=== PATIENT | male | born 1940 | race Caucasian/White ===

== ENCOUNTER 2020-06-13 18:05 | Inpatient (IN) ==
[2020-06-13] MEDS ORDERED: Albuterol HFA INHALER 8 gm MDI INH ONE (18:21)
[2020-06-13] MEDS ORDERED: Albuterol/Ipratropium NEB.SOL (2.5/0.5 MG) 3 ML NEB.SOLN INH PRN (18:45)
[2020-06-13] MEDS ORDERED: Remdesivir 100 mg Vial 200 MG in NS 0.9% 250 ml 210 ML IV ONE (18:46)
[2020-06-13 20:07] LABS: ABS Lymphocytes 0.7 10^3/ul (1.0-4.8); ABS Monocytes 0.1 10^3/ul (0-0.8); ABS Neutrophils 8.1 10^3/ul (1.5-7.7); Hematocrit 38 % (42-52); Hemoglobin 12.8 g/dL (14.0-18.0); Lymphocyte % 7.9 %; Mean Corpuscular HGB Conc 33 g/dL (31-36); Mean Corpuscular Hemoglobin 29 pg (27-31); Mean Corpuscular Volume 88 fL (80-94); Mean Platelet Volume 8.4 fL (7.4-10.4); Platelet Count 165 10^3/uL (150-450); Red Blood Count 4.34 10^6 /uL (4.18-5.48); Red Cell Distribution Width 19 % (10-15)
[2020-06-13] MEDS ORDERED: Furosemide 40 mg/4 ml IV VIAL IV ONE (20:28)
[2020-06-13 20:29] LABS: ALT 18 U/L (7-52); AST 49 U/L (13-39); Albumin 3.3 g/dL (3.2-5.2); Alkaline Phosphatase 55 U/L (34-104); Anion Gap 12 mmol/L (2-11); BUN/Creatinine Ratio 17.4 (8-20); Blood Urea Nitrogen 29 mg/dL (6-24); CO2 Carbon Dioxide 20 mmol/L (22-32); Calcium 7.7 mg/dL (8.6-10.3); Chloride 103 mmol/L (101-111); EGFR African American 48.4 (>60); Globulin 3.3 g/dL (2-4); Glucose 149 mg/dL (70-100); Potassium 4.3 mmol/L (3.5-5.0); Sodium 135 mmol/L (135-145); Total Protein 6.6 g/dL (6.4-8.9)
[2020-06-13] MEDS ORDERED: Nitroglycerin 0.4 mg/hr PATCH (10 mg) TRANSDERM ONE (20:29)
[2020-06-13] MEDS: methylPREDNISolone SOD 40 mg/ml 1 ml VIAL IV SCH (20:33)
[2020-06-13] MEDS: Enoxaparin 40 MG/0.4 ML SYR SUBCUT SCH (20:34)
[2020-06-13] MEDS ORDERED: Metoprolol Tartrate 5 mg VIAL 5 ml VIAL (1 mg/ml) IV ONE (22:17)
[2020-06-13 23:58] LABS: Troponin I 0.49 ng/mL (<0.03)
[2020-06-14] MEDS: methylPREDNISolone SOD 40 mg/ml 1 ml VIAL IV SCH ×3 (04:22→19:35)
[2020-06-14 04:33] LABS: ABS Lymphocytes 0.7 10^3/ul (1.0-4.8); ABS Monocytes 0.1 10^3/ul (0-0.8); ABS Neutrophils 6.1 10^3/ul (1.5-7.7); Hematocrit 34 % (42-52); Hemoglobin 11.8 g/dL (14.0-18.0); Lymphocyte % 9.6 %; Mean Corpuscular HGB Conc 35 g/dL (31-36); Mean Corpuscular Hemoglobin 30 pg (27-31); Mean Corpuscular Volume 86 fL (80-94); Mean Platelet Volume 8.3 fL (7.4-10.4); Nucleated Red Blood Cells % 0.1; Platelet Count 160 10^3/uL (150-450); Red Blood Count 3.97 10^6 /uL (4.18-5.48); Red Cell Distribution Width 19 % (10-15); White Blood Count 6.9 10^3/uL (3.5-10.8)
[2020-06-14 04:40] LABS: INR 1.36 (0.82-1.09)
[2020-06-14 04:50] LABS: BUN/Creatinine Ratio 19.7 (8-20); Calcium 7.6 mg/dL (8.6-10.3); EGFR African American 46.5 (>60); EGFR Non-African American 38.4 (>60); Magnesium 1.7 mg/dL (1.9-2.7)
[2020-06-14] MEDS: Tiotropium Brom/Olodaterol MDI INH SCH (07:49)
[2020-06-14] MEDS: Enoxaparin 40 MG/0.4 ML SYR SUBCUT SCH ×2 (08:03→19:37)
[2020-06-14] MEDS ORDERED: Furosemide 40 mg/4 ml IV VIAL IV SLOW PU ONE ×2 (08:19→18:58)
[2020-06-14] MEDS ORDERED: Dexamethasone IV 4 MG/ML VIAL 1 ml VIAL IV SLOW PU SCH (09:00)
[2020-06-14] MEDS ORDERED: Nitro Patch/OINT Remove PATCH PATCH OFF ONE (09:00)
[2020-06-14] MEDS ORDERED: Azithromycin 500 mg/250 ml NS 500 MG/250 ML BAG IVPB ONE (09:43)
[2020-06-14] MEDS: cefTRIAXone 1 gm/50 mL NS BAG 1 GM/50 ML BAG IVPB SCH (11:08)
[2020-06-14] MEDS ORDERED: Senna TAB 8.6 mg TAB PO PRN (14:34)
[2020-06-14] MEDS: Polyethylene Glycol 3350 17 GM PACKET PO SCH (15:27)
[2020-06-14 17:17] LABS: BUN/Creatinine Ratio 25.1 (8-20); Calcium 7.9 mg/dL (8.6-10.3); EGFR African American 48.4 (>60); Potassium 3.8 mmol/L (3.5-5.0)
[2020-06-14] MEDS ORDERED: Tocilizumab 200 MG/10 ML 10 ml VIAL IVPB ONE (19:13)
[2020-06-14] MEDS ORDERED: Furosemide 40 mg/4 ml IV VIAL ONE (19:15)
[2020-06-14] MEDS: Mometasone 220 MCG MDI INH SCH (19:28)
[2020-06-14] MEDS: KCL 10 MEQ/50 ML IVPREMIX 10 MEQ/50 ML BAG IV SCH ×2 (19:56→22:02)
[2020-06-14] MEDS ORDERED: Tocilizumab 800 MG in NS 0.9% 100 ml BAG 60 ML IVPB ONE (20:00)
[2020-06-14] MEDS: Remdesivir 100 mg Vial 100 MG in NS 0.9% 250 ml 230 ML IV SCH (21:58)
[2020-06-15] MEDS: methylPREDNISolone SOD 40 mg/ml 1 ml VIAL IV SCH ×3 (04:08→20:11)
[2020-06-15 04:18] LABS: ABS Lymphocytes 0.7 10^3/ul (1.0-4.8); ABS Monocytes 0.2 10^3/ul (0-0.8); ABS Neutrophils 5.1 10^3/ul (1.5-7.7); Hematocrit 34 % (42-52); Hemoglobin 11.5 g/dL (14.0-18.0); Lymphocyte % 12.4 %; Mean Corpuscular HGB Conc 34 g/dL (31-36); Mean Corpuscular Hemoglobin 29 pg (27-31); Mean Corpuscular Volume 86 fL (80-94); Mean Platelet Volume 8.3 fL (7.4-10.4); Nucleated Red Blood Cells % 0.2; Platelet Count 184 10^3/uL (150-450); Red Blood Count 3.92 10^6 /uL (4.18-5.48); Red Cell Distribution Width 20 % (10-15)
[2020-06-15 04:23] LABS: INR 1.35 (0.82-1.09)
[2020-06-15 04:32] LABS: BUN/Creatinine Ratio 28.6 (8-20); Calcium 7.7 mg/dL (8.6-10.3); EGFR African American 48.1 (>60); EGFR Non-African American 39.7 (>60); Magnesium 1.9 mg/dL (1.9-2.7); Potassium 3.8 mmol/L (3.5-5.0)
[2020-06-15] MEDS: Tiotropium Brom/Olodaterol MDI INH SCH (07:01)
[2020-06-15] MEDS ORDERED: Potassium Chlor 20 meq TAB.ER PO ONE (07:20)
[2020-06-15] MEDS ORDERED: Magnesium Sulfate IV 1GM/100ML 1 GM/100 ML BAG IV ONE (07:20)
[2020-06-15] MEDS ORDERED: Furosemide 40 mg/4 ml IV VIAL IV SLOW PU ONE ×2 (07:30→18:06)
[2020-06-15] MEDS: Enoxaparin 40 MG/0.4 ML SYR SUBCUT SCH ×2 (08:07→20:11)
[2020-06-15] MEDS: Polyethylene Glycol 3350 17 GM PACKET PO SCH (08:15)
[2020-06-15] MEDS: cefTRIAXone 1 gm/50 mL NS BAG 1 GM/50 ML BAG IVPB SCH (09:31)
[2020-06-15] MEDS ORDERED: methylPREDNISolone 125 mg 2 ML VIAL IV ONE (13:55)
[2020-06-15] MEDS: Albuterol/Ipratropium NEB.SOL (2.5/0.5 MG) 3 ML NEB.SOLN INH SCH ×3 (14:06→23:03)
[2020-06-15] MEDS ORDERED: Albuterol/Ipratropium NEB.SOL (2.5/0.5 MG) 3 ML NEB.SOLN ONE (16:41)
[2020-06-15] MEDS: Senna TAB 8.6 mg TAB PO SCH ×2 (16:42→20:11)
[2020-06-15 17:03] LABS: Anion Gap 12 mmol/L (2-11); BUN/Creatinine Ratio 32.7 (8-20); Blood Urea Nitrogen 53 mg/dL (6-24); CO2 Carbon Dioxide 22 mmol/L (22-32); Calcium 7.8 mg/dL (8.6-10.3); Chloride 105 mmol/L (101-111); EGFR African American 50.1 (>60); EGFR Non-African American 41.4 (>60); Glucose 183 mg/dL (70-100); Potassium 3.6 mmol/L (3.5-5.0); Sodium 139 mmol/L (135-145)
[2020-06-15] MEDS ORDERED: Metoprolol Tartrate 5 mg VIAL 5 ml VIAL (1 mg/ml) ONE (17:04)
[2020-06-15] MEDS ORDERED: Metoprolol Tartrate 5 mg VIAL 5 ml VIAL (1 mg/ml) IV ONE (17:06)
[2020-06-15] MEDS ORDERED: Magnesium Sulfate 2 gm BAG 2 GM/50 ML BAG IVPB ONE (17:08)
[2020-06-15 17:37] LABS: Magnesium 2.3 mg/dL (1.9-2.7)
[2020-06-15 17:45] LABS: Troponin I 0.07 ng/mL (<0.03)
[2020-06-15] MEDS: Remdesivir 100 mg Vial 100 MG in NS 0.9% 250 ml 230 ML IV SCH (21:15)
[2020-06-15] MEDS: Mometasone 220 MCG MDI INH SCH (23:04)
[2020-06-16] MEDS: Albuterol/Ipratropium NEB.SOL (2.5/0.5 MG) 3 ML NEB.SOLN INH SCH ×2 (04:32→07:01)
[2020-06-16] MEDS: methylPREDNISolone SOD 40 mg/ml 1 ml VIAL IV SCH ×3 (04:35→20:07)
[2020-06-16 04:43] LABS: ABS Lymphocytes 0.4 10^3/ul (1.0-4.8); ABS Monocytes 0.2 10^3/ul (0-0.8); ABS Neutrophils 6.8 10^3/ul (1.5-7.7); Hematocrit 34 % (42-52); Hemoglobin 11.6 g/dL (14.0-18.0); Lymphocyte % 5.9 %; Mean Corpuscular HGB Conc 34 g/dL (31-36); Mean Corpuscular Hemoglobin 29 pg (27-31); Mean Corpuscular Volume 87 fL (80-94); Mean Platelet Volume 8.5 fL (7.4-10.4); Nucleated Red Blood Cells % 0.1; Platelet Count 236 10^3/uL (150-450); Red Blood Count 3.95 10^6 /uL (4.18-5.48); Red Cell Distribution Width 19 % (10-15); White Blood Count 7.5 10^3/uL (3.5-10.8)
[2020-06-16 04:50] LABS: INR 1.26 (0.82-1.09)
[2020-06-16 05:00] LABS: BUN/Creatinine Ratio 32.9 (8-20); Calcium 7.9 mg/dL (8.6-10.3); EGFR African American 53.9 (>60); EGFR Non-African American 44.6 (>60); Magnesium 2.8 mg/dL (1.9-2.7); Potassium 3.5 mmol/L (3.5-5.0)
[2020-06-16] MEDS ORDERED: Potassium Chlor 20 meq TAB.ER PO ONE ×2 (07:02→16:23)
[2020-06-16] MEDS: Tiotropium Brom/Olodaterol MDI INH SCH (07:02)
[2020-06-16] MEDS: Enoxaparin 40 MG/0.4 ML SYR SUBCUT SCH ×2 (08:11→20:07)
[2020-06-16] MEDS: Polyethylene Glycol 3350 17 GM PACKET PO SCH (08:28)
[2020-06-16] MEDS: cefTRIAXone 1 gm/50 mL NS BAG 1 GM/50 ML BAG IVPB SCH (09:56)
[2020-06-16] MEDS ORDERED: Furosemide 100 mg/10 ml IV 100 MG in NS 0.9% 100 ml BAG 90 ML IV SCH (10:00)
[2020-06-16] MEDS ORDERED: Albuterol/Ipratropium NEB.SOL (2.5/0.5 MG) 3 ML NEB.SOLN INH SCH (11:00)
[2020-06-16 16:17] LABS: Albumin 3.3 g/dL (3.2-5.2); BUN/Creatinine Ratio 33.3 (8-20); Calcium 7.9 mg/dL (8.6-10.3); EGFR African American 53.5 (>60); EGFR Non-African American 44.2 (>60); Globulin 3.3 g/dL (2-4); Magnesium 2.5 mg/dL (1.9-2.7); Phosphorus 3.2 mg/dL (2.5-5.0); Potassium 3.8 mmol/L (3.5-5.0); Total Bilirubin 0.9 mg/dL (0.2-1.0); Total Protein 6.6 g/dL (6.4-8.9)
[2020-06-16] MEDS: Senna TAB 8.6 mg TAB PO SCH (20:08)
[2020-06-16] MEDS: Remdesivir 100 mg Vial 100 MG in NS 0.9% 250 ml 230 ML IV SCH (21:21)
[2020-06-17] MEDS: methylPREDNISolone SOD 40 mg/ml 1 ml VIAL IV SCH ×3 (03:56→19:20)
[2020-06-17 04:06] LABS: ABS Lymphocytes 0.4 10^3/ul (1.0-4.8); ABS Monocytes 0.4 10^3/ul (0-0.8); ABS Neutrophils 8.1 10^3/ul (1.5-7.7); Hematocrit 33 % (42-52); Hemoglobin 11.4 g/dL (14.0-18.0); Lymphocyte % 4.5 %; Mean Corpuscular HGB Conc 35 g/dL (31-36); Mean Corpuscular Hemoglobin 30 pg (27-31); Mean Corpuscular Volume 87 fL (80-94); Mean Platelet Volume 8.8 fL (7.4-10.4); Nucleated Red Blood Cells % 0.1; Platelet Count 267 10^3/uL (150-450); Red Blood Count 3.78 10^6 /uL (4.18-5.48); Red Cell Distribution Width 19 % (10-15); White Blood Count 8.9 10^3/uL (3.5-10.8)
[2020-06-17 04:22] LABS: BUN/Creatinine Ratio 36.1 (8-20); EGFR African American 56.1 (>60); EGFR Non-African American 46.3 (>60); Magnesium 2.6 mg/dL (1.9-2.7); Potassium 4.2 mmol/L (3.5-5.0)
[2020-06-17] MEDS: Enoxaparin 40 MG/0.4 ML SYR SUBCUT SCH ×2 (07:41→19:20)
[2020-06-17] MEDS: Polyethylene Glycol 3350 17 GM PACKET PO SCH (07:41)
[2020-06-17] MEDS: Tiotropium Brom/Olodaterol MDI INH SCH (07:52)
[2020-06-17] MEDS: cefTRIAXone 1 gm/50 mL NS BAG 1 GM/50 ML BAG IVPB SCH (09:06)
[2020-06-17] MEDS ORDERED: Bumetanide IV 0.25 MG/ML 4 ml VIAL (1 mg) SLOW PUSH ONE ×2 (09:30→17:27)
[2020-06-17 17:06] LABS: Urine Appearance Cloudy; Urine Bilirubin Negative (Negative); Urine Blood 3+ (Negative); Urine Color Yellow; Urine Glucose Negative (Negative); Urine Ketones Negative (Negative); Urine Nitrite Negative (Negative); Urine Protein 1+(30 mg/dL) (Negative); Urine Specific Gravity 1.015 (1.002-1.030); Urine Urobilinogen Negative (Negative)
[2020-06-17 17:14] LABS: Urine Bacteria Absent (Absent); Urine Red Blood Cell 3+(>10/hpf) (Absent); Urine Squamous Epithelial Cell Present (Absent); Urine White Blood Cell Absent (Absent)
[2020-06-17] MEDS: Senna TAB 8.6 mg TAB PO SCH (19:21)
[2020-06-17] MEDS: Remdesivir 100 mg Vial 100 MG in NS 0.9% 250 ml 230 ML IV SCH (21:31)
[2020-06-18] MEDS ORDERED: Morphine 2 MG/ML SYRINGE IV ONE (03:50)
[2020-06-18] MEDS: methylPREDNISolone SOD 40 mg/ml 1 ml VIAL IV SCH ×2 (04:00→15:42)
[2020-06-18 04:29] LABS: INR 1.33 (0.82-1.09)
[2020-06-18 04:36] LABS: Hematocrit 38 % (42-52); Hemoglobin 12.6 g/dL (14.0-18.0); Mean Corpuscular HGB Conc 33 g/dL (31-36); Mean Corpuscular Hemoglobin 29 pg (27-31); Mean Corpuscular Volume 88 fL (80-94); Mean Platelet Volume 7.9 fL (7.4-10.4); Platelet Count 300 10^3/uL (150-450); Red Blood Count 4.33 10^6 /uL (4.18-5.48); Red Cell Distribution Width 20 % (10-15); White Blood Count 12.5 10^3/uL (3.5-10.8)
[2020-06-18 04:57] LABS: Calcium 7.5 mg/dL (8.6-10.3); Magnesium 2.3 mg/dL (1.9-2.7); Potassium 4.8 mmol/L (3.5-5.0)
[2020-06-18 05:05] LABS: BUN/Creatinine Ratio 36.4 (8-20); EGFR African American 59.3 (>60)
[2020-06-18 06:09] LABS: ABS Lymphocytes 0.8 10^3/ul (1.0-4.8); ABS Monocytes 0.5 10^3/ul (0-0.8); ABS Neutrophils 11.3 10^3/ul (1.5-7.7); Lymphocyte % 6.2 %
[2020-06-18] MEDS ORDERED: Polyethylene Glycol 3350 17 GM PACKET PO PRN (10:08)
[2020-06-18] MEDS: cefTRIAXone 1 gm/50 mL NS BAG 1 GM/50 ML BAG IVPB SCH (10:11)
[2020-06-18] MEDS: Bumetanide IV 10 MG in Premix IV 0 ML IV SCH (10:11)
[2020-06-18] MEDS: Enoxaparin 40 MG/0.4 ML SYR SUBCUT SCH (10:18)
[2020-06-18] MEDS ORDERED: Succinylcholine 200 mg VIAL 20 mg/ml 10 ml VIAL (200 mg) ONE (10:29)
[2020-06-18] MEDS ORDERED: Rocuronium 50 mg VIAL 10 mg/ml 5 ml VIAL (50 mg) ONE (10:29)
[2020-06-18] MEDS ORDERED: Metoprolol Tartrate 5 mg VIAL 5 ml VIAL (1 mg/ml) ONE (10:52)
[2020-06-18] MEDS ORDERED: Etomidate 40 mg/20 ml (2 MG/ML) 20 ml VIAL (40 mg) ONE (11:01)
[2020-06-18] MEDS ORDERED: Propofol 10 MG/ML 20 ML BTL ONE ×2 (11:01→11:19)
[2020-06-18] MEDS ORDERED: Propofol 10 mg/ml 100 ML BTL 100 ML ONE (11:19)
[2020-06-18] MEDS ORDERED: Norepinephrine 16MCG/ML IVPRE 4,000 MCG/250 ML BAG IV ONE (11:20)
[2020-06-18] MEDS ORDERED: Amiodarone 150 mg IVPREMIX 150 MG/100 ML BAG IV ONE (11:27)
[2020-06-18] MEDS ORDERED: Amiodarone 360 MG IVPREMIX 360 MG/200 ML BAG IV ONE ×2 (11:27→11:30)
[2020-06-18] MEDS: Amiodarone 360 MG IVPREMIX 360 MG/200 ML BAG IV ONE ×2 (12:10→17:18)
[2020-06-18] MEDS ORDERED: Propofol 10 mg/ml 100 ML BTL 100 ML IV SCH ×2 (13:00→15:01)
[2020-06-18] MEDS ORDERED: Norepinephrine 16MCG/ML IVPRE 4,000 MCG/250 ML BAG IV SCH (13:00)
[2020-06-18] MEDS: Pantoprazole VIAL 40 MG VIAL IV SCH (13:50)
[2020-06-18] MEDS ORDERED: fentaNYL 100 mcg/2 ml 50 MCG/ML VIAL ONE (14:43)
[2020-06-18] MEDS: Tiotropium Brom/Olodaterol MDI INH SCH (14:56)
[2020-06-18] MEDS ORDERED: Rocuronium 50 mg VIAL 10 mg/ml 5 ml VIAL (50 mg) IV ONE (15:05)
[2020-06-18] MEDS ORDERED: fentaNYL 100 mcg/2 ml 50 MCG/ML VIAL IV SLOW PU ONE (15:14)
[2020-06-18] MEDS: Chlorhexidine MOUTHWASH 0.12% 15 ML UDC SWISH SPIT SCH ×2 (15:42→21:11)
[2020-06-18] MEDS ORDERED: fentaNYL PATCH 50 MCG/HR 1 PATCH TRANSDERM SCH (16:00)
[2020-06-18 16:11] LABS: BUN/Creatinine Ratio 36.2 (8-20); Calcium 7.5 mg/dL (8.6-10.3); EGFR African American 49.8 (>60); EGFR Non-African American 41.1 (>60); Potassium 5.2 mmol/L (3.5-5.0)
[2020-06-18] MEDS: Cisatracurium 100 MG in NS 0.9% 250 ml 200 ML IV SCH (16:44)
[2020-06-18] MEDS: fentaNYL INFUSION 50 MCG/ML 2,500 MCG/50 ML BAG IV SCH (16:50)
[2020-06-18] MEDS ORDERED: Amiodarone 360 MG IVPREMIX 360 MG/200 ML BAG IV SCH (18:10)
[2020-06-18] MEDS: Norepinephrine 16MCG/ML IVPRE 4,000 MCG/250 ML BAG IV SCH (19:15)
[2020-06-18] MEDS ORDERED: fentaNYL INFUSION 50 MCG/ML 2,500 MCG/50 ML BAG IV SCH (20:36)
[2020-06-18] MEDS: Enoxaparin 60 MG/0.6 ML SYR SUBCUT SCH (21:11)
[2020-06-18] MEDS: Senna TAB 8.6 mg TAB PO SCH (21:11)
[2020-06-18] MEDS: Propofol 10 mg/ml 100 ML BTL 100 ML IV SCH (21:45)
[2020-06-19] MEDS: Chlorhexidine MOUTHWASH 0.12% 15 ML UDC SWISH SPIT SCH ×7 (00:51→23:58)
[2020-06-19] MEDS: Propofol 10 mg/ml 100 ML BTL 100 ML IV SCH ×4 (03:16→21:54)
[2020-06-19] MEDS: Norepinephrine 16MCG/ML IVPRE 4,000 MCG/250 ML BAG IV SCH (04:25)
[2020-06-19] MEDS: methylPREDNISolone SOD 40 mg/ml 1 ml VIAL IV SCH ×2 (04:25→16:40)
[2020-06-19 04:53] LABS: ABS Lymphocytes 0.9 10^3/ul (1.0-4.8); ABS Monocytes 0.5 10^3/ul (0-0.8); ABS Neutrophils 14.8 10^3/ul (1.5-7.7); Hematocrit 35 % (42-52); Hemoglobin 11.6 g/dL (14.0-18.0); Lymphocyte % 5.8 %; Mean Corpuscular HGB Conc 34 g/dL (31-36); Mean Corpuscular Hemoglobin 29 pg (27-31); Mean Corpuscular Volume 87 fL (80-94); Mean Platelet Volume 8.7 fL (7.4-10.4); Platelet Count 332 10^3/uL (150-450); Red Blood Count 3.96 10^6 /uL (4.18-5.48); Red Cell Distribution Width 20 % (10-15); White Blood Count 16.2 10^3/uL (3.5-10.8)
[2020-06-19 05:09] LABS: Albumin 2.9 g/dL (3.2-5.2); Albumin/Globulin Ratio 1.1 (1-3); BUN/Creatinine Ratio 32.2 (8-20); Calcium 7.5 mg/dL (8.6-10.3); EGFR African American 38.2 (>60); EGFR Non-African American 31.6 (>60); Globulin 2.7 g/dL (2-4); Magnesium 2.7 mg/dL (1.9-2.7); Phosphorus 5.2 mg/dL (2.5-5.0); Total Bilirubin 0.6 mg/dL (0.2-1.0); Total Protein 5.6 g/dL (6.4-8.9)
[2020-06-19 05:13] LABS: Activated Partial Thrombo Time 29.9 seconds (26.0-38.0); INR 1.15 (0.82-1.09)
[2020-06-19 05:16] LABS: Potassium 5.3 mmol/L (3.5-5.0)
[2020-06-19] MEDS: Polyethylene Glycol 3350 17 GM PACKET PO SCH (08:09)
[2020-06-19] MEDS: Bumetanide IV 10 MG in Premix IV 0 ML IV SCH (08:09)
[2020-06-19] MEDS ORDERED: Zosyn per Pharmacy NOTE FOLLOW UP PRN ×2 (08:18→19:54)
[2020-06-19] MEDS ORDERED: Piperacillin/Tazobac ADVAN 3.375 GM in NS 0.9% 100 ml BAG 100 ML IV ONE (08:30)
[2020-06-19] MEDS: Enoxaparin 60 MG/0.6 ML SYR SUBCUT SCH ×2 (08:39→19:52)
[2020-06-19] MEDS: Docusate LIQ 100 MG/10 ML UDC G TUBE SCH (08:39)
[2020-06-19] MEDS: Linezolid 600 MG IVPREMIX(*) 600 MG/300 ML BAG IVPB SCH ×2 (09:53→20:15)
[2020-06-19] MEDS ORDERED: Dextrose 50% Syringe 50 ml 25 GM/50 ML SYRINGE IV PUSH PRN (09:58)
[2020-06-19 12:43] LABS: Glucose Confirmatory 412 mg/dL (70-100)
[2020-06-19] MEDS ORDERED: ZOSYN 3.375 GM Q8H per EXTENDED INFUSION IV SCH (13:00)
[2020-06-19] MEDS: Pantoprazole VIAL 40 MG VIAL IV SCH (13:37)
[2020-06-19] MEDS: fentaNYL INFUSION 50 MCG/ML 2,500 MCG/50 ML BAG IV SCH (17:04)
[2020-06-19 17:13] LABS: BUN/Creatinine Ratio 30.8 (8-20); Calcium 7.5 mg/dL (8.6-10.3); EGFR African American 36.3 (>60)
[2020-06-19 17:14] LABS: Potassium 5.4 mmol/L (3.5-5.0)
[2020-06-19] MEDS ORDERED: Norepinephrine 16MCG/ML IVPRE 4,000 MCG/250 ML BAG IV SCH (18:37)
[2020-06-19] MEDS ORDERED: ZOSYN 3.375 GM Q8H per EXTENDED INFUSION IV ONE (19:39)
[2020-06-19] MEDS: Artificial Tear OPHTH.OINT 3.5 GM BOTH EYES SCH ×2 (19:44→23:54)
[2020-06-19] MEDS: Cisatracurium 100 MG in NS 0.9% 250 ml 200 ML IV SCH (19:47)
[2020-06-19] MEDS: Insulin GLARGINE 100 un/ml 10 ml VIAL SUBCUT SCH (19:52)
[2020-06-19] MEDS: Senna TAB 8.6 mg TAB PO SCH (19:57)
[2020-06-19] MEDS ORDERED: Propofol 10 MG/ML 20 ML BTL ONE (21:28)
[2020-06-20] MEDS: ZOSYN 3.375 GM Q8H per EXTENDED INFUSION IV SCH ×3 (00:20→16:19)
[2020-06-20] MEDS: Propofol 10 mg/ml 100 ML BTL 100 ML IV SCH ×6 (01:06→23:50)
[2020-06-20] MEDS: Artificial Tear OPHTH.OINT 3.5 GM BOTH EYES SCH ×6 (04:31→23:31)
[2020-06-20] MEDS: methylPREDNISolone SOD 40 mg/ml 1 ml VIAL IV SCH ×2 (04:31→17:28)
[2020-06-20] MEDS: Chlorhexidine MOUTHWASH 0.12% 15 ML UDC SWISH SPIT SCH ×6 (04:31→23:32)
[2020-06-20 04:45] LABS: ABS Lymphocytes 0.5 10^3/ul (1.0-4.8); ABS Monocytes 0.3 10^3/ul (0-0.8); ABS Neutrophils 14.9 10^3/ul (1.5-7.7); Hematocrit 34 % (42-52); Hemoglobin 10.7 g/dL (14.0-18.0); Lymphocyte % 3.3 %; Mean Corpuscular HGB Conc 32 g/dL (31-36); Mean Corpuscular Hemoglobin 29 pg (27-31); Mean Corpuscular Volume 90 fL (80-94); Mean Platelet Volume 8.9 fL (7.4-10.4); Platelet Count 251 10^3/uL (150-450); Red Blood Count 3.75 10^6 /uL (4.18-5.48); Red Cell Distribution Width 19 % (10-15); White Blood Count 15.8 10^3/uL (3.5-10.8)
[2020-06-20 05:03] LABS: Albumin 2.7 g/dL (3.2-5.2); Albumin/Globulin Ratio 1.1 (1-3); BUN/Creatinine Ratio 30.5 (8-20); Calcium 7.6 mg/dL (8.6-10.3); EGFR African American 34.1 (>60); EGFR Non-African American 28.2 (>60); Globulin 2.5 g/dL (2-4); Phosphorus 5.9 mg/dL (2.5-5.0); Total Bilirubin 0.5 mg/dL (0.2-1.0); Total Protein 5.2 g/dL (6.4-8.9)
[2020-06-20 05:05] LABS: Potassium 5.4 mmol/L (3.5-5.0)
[2020-06-20] MEDS: Docusate LIQ 100 MG/10 ML UDC G TUBE SCH (07:42)
[2020-06-20] MEDS: Enoxaparin 60 MG/0.6 ML SYR SUBCUT SCH (07:45)
[2020-06-20] MEDS: Linezolid 600 MG IVPREMIX(*) 600 MG/300 ML BAG IVPB SCH ×2 (08:06→21:07)
[2020-06-20] MEDS ORDERED: Bumetanide IV 0.25 MG/ML 4 ml VIAL (1 mg) SLOW PUSH ONE (08:31)
[2020-06-20] MEDS ORDERED: Sodium Bicarbonate 8.4% SYR 50 ml SYRINGE IV ONE (09:13)
[2020-06-20] MEDS ORDERED: Sodium Bicarbonate 8.4% SYR 50 ml SYRINGE ONE ×2 (09:22→09:33)
[2020-06-20] MEDS ORDERED: Desmopressin Acetate 30 MCG in NS 0.9% 50 ML 50 ML IVPB ONE (12:00)
[2020-06-20] MEDS: Pantoprazole VIAL 40 MG VIAL IV SCH (12:13)
[2020-06-20] MEDS: Cisatracurium 100 MG in NS 0.9% 250 ml 200 ML IV SCH (14:55)
[2020-06-20] MEDS: Senna TAB 8.6 mg TAB PO SCH (20:26)
[2020-06-20] MEDS: Insulin GLARGINE 100 un/ml 10 ml VIAL SUBCUT SCH (20:27)
[2020-06-20] MEDS ORDERED: Propofol 10 MG/ML 20 ML BTL ONE (22:43)
[2020-06-20 23:58] LABS: Glucose Confirmatory 405 mg/dL (70-100)
[2020-06-21] MEDS: ZOSYN 3.375 GM Q8H per EXTENDED INFUSION IV SCH ×3 (00:11→15:51)
[2020-06-21] MEDS: Propofol 10 mg/ml 100 ML BTL 100 ML IV SCH ×6 (02:43→23:11)
[2020-06-21] MEDS: methylPREDNISolone SOD 40 mg/ml 1 ml VIAL IV SCH ×2 (05:14→15:51)
[2020-06-21] MEDS: Chlorhexidine MOUTHWASH 0.12% 15 ML UDC SWISH SPIT SCH ×6 (05:14→23:25)
[2020-06-21] MEDS: Artificial Tear OPHTH.OINT 3.5 GM BOTH EYES SCH ×6 (05:16→23:25)
[2020-06-21 05:23] LABS: ABS Lymphocytes 0.5 10^3/ul (1.0-4.8); ABS Monocytes 0.3 10^3/ul (0-0.8); ABS Neutrophils 17.3 10^3/ul (1.5-7.7); Hematocrit 32 % (42-52); Hemoglobin 10.7 g/dL (14.0-18.0); Lymphocyte % 2.8 %; Mean Corpuscular HGB Conc 34 g/dL (31-36); Mean Corpuscular Hemoglobin 30 pg (27-31); Mean Corpuscular Volume 89 fL (80-94); Mean Platelet Volume 9.7 fL (7.4-10.4); Platelet Count 257 10^3/uL (150-450); Red Blood Count 3.58 10^6 /uL (4.18-5.48); Red Cell Distribution Width 19 % (10-15); White Blood Count 18.2 10^3/uL (3.5-10.8)
[2020-06-21 05:42] LABS: Albumin 2.6 g/dL (3.2-5.2); Albumin/Globulin Ratio 1.1 (1-3); BUN/Creatinine Ratio 33.8 (8-20); Calcium 8.1 mg/dL (8.6-10.3); EGFR African American 37.1 (>60); EGFR Non-African American 30.7 (>60); Globulin 2.4 g/dL (2-4); Phosphorus 4.7 mg/dL (2.5-5.0); Total Bilirubin 0.5 mg/dL (0.2-1.0)
[2020-06-21] MEDS: Linezolid 600 MG IVPREMIX(*) 600 MG/300 ML BAG IVPB SCH ×2 (07:36→20:29)
[2020-06-21] MEDS: Docusate LIQ 100 MG/10 ML UDC G TUBE SCH (08:08)
[2020-06-21] MEDS ORDERED: Insulin GLARGINE 100 un/ml 10 ml VIAL SUBCUT ONE (09:04)
[2020-06-21] MEDS ORDERED: Bumetanide IV 0.25 MG/ML 4 ml VIAL (1 mg) SLOW PUSH ONE (09:04)
[2020-06-21] MEDS: Pantoprazole VIAL 40 MG VIAL IV SCH ×2 (10:44→23:14)
[2020-06-21] MEDS: Cisatracurium 100 MG in NS 0.9% 250 ml 200 ML IV SCH (14:36)
[2020-06-21] MEDS ORDERED: Norepinephrine 16MCG/ML IVPRE 4,000 MCG/250 ML BAG IV SCH (17:00)
[2020-06-21] MEDS: Insulin GLARGINE 100 un/ml 10 ml VIAL SUBCUT SCH (19:58)
[2020-06-21] MEDS: Senna TAB 8.6 mg TAB PO SCH (19:58)
[2020-06-21] MEDS ORDERED: Propofol 10 MG/ML 20 ML BTL ONE (22:59)
[2020-06-22] MEDS: ZOSYN 3.375 GM Q8H per EXTENDED INFUSION IV SCH ×5 (00:23→23:40)
[2020-06-22] MEDS: Propofol 10 mg/ml 100 ML BTL 100 ML IV SCH ×3 (02:45→10:34)
[2020-06-22] MEDS: Chlorhexidine MOUTHWASH 0.12% 15 ML UDC SWISH SPIT SCH ×6 (04:40→23:40)
[2020-06-22] MEDS: methylPREDNISolone SOD 40 mg/ml 1 ml VIAL IV SCH (04:40)
[2020-06-22] MEDS: Artificial Tear OPHTH.OINT 3.5 GM BOTH EYES SCH ×6 (04:40→23:40)
[2020-06-22 05:16] LABS: ABS Basophils 0.1 10^3/ul (0-0.2); ABS Lymphocytes 0.8 10^3/ul (1.0-4.8); ABS Monocytes 0.5 10^3/ul (0-0.8); ABS Neutrophils 17.2 10^3/ul (1.5-7.7); Hematocrit 32 % (42-52); Hemoglobin 10.5 g/dL (14.0-18.0); Lymphocyte % 4.3 %; Mean Corpuscular HGB Conc 33 g/dL (31-36); Mean Corpuscular Hemoglobin 30 pg (27-31); Mean Corpuscular Volume 89 fL (80-94); Mean Platelet Volume 9.4 fL (7.4-10.4); Nucleated Red Blood Cells % 0.1; Platelet Count 251 10^3/uL (150-450); Red Blood Count 3.57 10^6 /uL (4.18-5.48); Red Cell Distribution Width 19 % (10-15); White Blood Count 18.5 10^3/uL (3.5-10.8)
[2020-06-22 05:32] LABS: EGFR African American 37.1 (>60); EGFR Non-African American 30.7 (>60); Magnesium 2.9 mg/dL (1.9-2.7); Phosphorus 5.1 mg/dL (2.5-5.0)
[2020-06-22 05:47] LABS: Potassium 5.2 mmol/L (3.5-5.0)
[2020-06-22] MEDS: Linezolid 600 MG IVPREMIX(*) 600 MG/300 ML BAG IVPB SCH ×2 (07:26→20:37)
[2020-06-22] MEDS: Docusate LIQ 100 MG/10 ML UDC G TUBE SCH (07:48)
[2020-06-22] MEDS: Pantoprazole VIAL 40 MG VIAL IV SCH ×2 (10:20→21:17)
[2020-06-22] MEDS ORDERED: SODIUM ZIRCONIUM CYCLOSILICATE 10 GM PACKET PO SCH (14:00)
[2020-06-22] MEDS ORDERED: Midazolam 50 MG VIAL IV DRIP 50 ML IV SCH (14:00)
[2020-06-22] MEDS ORDERED: fentaNYL INFUSION 50 MCG/ML 2,500 MCG/50 ML BAG IV SCH (15:22)
[2020-06-22] MEDS: Senna TAB 8.6 mg TAB PO SCH (19:39)
[2020-06-22] MEDS: Insulin GLARGINE 100 un/ml 10 ml VIAL SUBCUT SCH (19:51)
[2020-06-23] MEDS: Artificial Tear OPHTH.OINT 3.5 GM BOTH EYES SCH ×5 (02:48→20:44)
[2020-06-23] MEDS: Chlorhexidine MOUTHWASH 0.12% 15 ML UDC SWISH SPIT SCH ×5 (02:48→20:44)
[2020-06-23 04:10] LABS: Hematocrit 30 % (42-52); Hemoglobin 9.9 g/dL (14.0-18.0); Mean Corpuscular HGB Conc 33 g/dL (31-36); Mean Corpuscular Hemoglobin 30 pg (27-31); Mean Corpuscular Volume 90 fL (80-94); Mean Platelet Volume 9.6 fL (7.4-10.4); Platelet Count 187 10^3/uL (150-450); Red Blood Count 3.35 10^6 /uL (4.18-5.48); Red Cell Distribution Width 20 % (10-15); White Blood Count 17.1 10^3/uL (3.5-10.8)
[2020-06-23 04:27] LABS: BUN/Creatinine Ratio 47.6 (8-20); Calcium 7.9 mg/dL (8.6-10.3); EGFR African American 42.5 (>60); EGFR Non-African American 35.1 (>60); Phosphorus 4.2 mg/dL (2.5-5.0); Potassium 4.6 mmol/L (3.5-5.0)
[2020-06-23 05:20] LABS: ABS Lymphocytes 1.1 10^3/ul (1.0-4.8); ABS Monocytes 0.4 10^3/ul (0-0.8); ABS Neutrophils 15.6 10^3/ul (1.5-7.7); Eosinophil % 0.2 %; Lymphocyte % 6.2 %; Nucleated Red Blood Cells % 0.1
[2020-06-23 05:22] LABS: Polychromasia 1+
[2020-06-23 05:23] LABS: Acanthocytes 1+
[2020-06-23] MEDS: Docusate LIQ 100 MG/10 ML UDC G TUBE SCH (07:50)
[2020-06-23] MEDS: methylPREDNISolone SOD 40 mg/ml 1 ml VIAL IV SCH (08:00)
[2020-06-23] MEDS: Linezolid 600 MG IVPREMIX(*) 600 MG/300 ML BAG IVPB SCH ×2 (08:14→21:47)
[2020-06-23] MEDS ORDERED: Midazolam 50 MG VIAL IV DRIP 50 ML IV SCH ×2 (08:44→17:38)
[2020-06-23] MEDS ORDERED: Multivitamins ADULT w/MIN LIQ 15 ML UDC PO SCH (09:00)
[2020-06-23] MEDS ORDERED: fentaNYL INFUSION 50 MCG/ML 2,500 MCG/50 ML BAG IV SCH ×2 (09:00→18:00)
[2020-06-23] MEDS: ZOSYN 3.375 GM Q8H per EXTENDED INFUSION IV SCH ×2 (09:35→16:10)
[2020-06-23] MEDS: Acetylcysteine 600mgCAP(RENAL) PO SCH ×2 (10:32→20:47)
[2020-06-23] MEDS: Pantoprazole VIAL 40 MG VIAL IV SCH ×2 (10:35→21:08)
[2020-06-23] MEDS: Enoxaparin 60 MG/0.6 ML SYR SUBCUT SCH ×2 (10:37→21:04)
[2020-06-23] MEDS: Norepinephrine 16MCG/ML IVPRE 4,000 MCG/250 ML BAG IV SCH (16:28)
[2020-06-23 18:19] LABS: Glucose Confirmatory 421 mg/dL (70-100)
[2020-06-23] MEDS: Senna TAB 8.6 mg TAB PO SCH (20:47)
[2020-06-23] MEDS ORDERED: Insulin GLARGINE 100 un/ml 10 ml VIAL SUBCUT SCH (21:00)
[2020-06-24 00:09] LABS: Glucose Confirmatory 450 mg/dL (70-100)
[2020-06-24] MEDS: Chlorhexidine MOUTHWASH 0.12% 15 ML UDC SWISH SPIT SCH ×5 (00:16→17:21)
[2020-06-24] MEDS: Artificial Tear OPHTH.OINT 3.5 GM BOTH EYES SCH ×5 (00:17→17:20)
[2020-06-24] MEDS: ZOSYN 3.375 GM Q8H per EXTENDED INFUSION IV SCH ×3 (00:44→16:46)
[2020-06-24 05:10] LABS: Hematocrit 30 % (42-52); Hemoglobin 9.4 g/dL (14.0-18.0); Mean Corpuscular HGB Conc 32 g/dL (31-36); Mean Corpuscular Hemoglobin 29 pg (27-31); Mean Corpuscular Volume 92 fL (80-94); Mean Platelet Volume 10.2 fL (7.4-10.4); Platelet Count 163 10^3/uL (150-450); Red Blood Count 3.22 10^6 /uL (4.18-5.48); Red Cell Distribution Width 19 % (10-15); White Blood Count 22.1 10^3/uL (3.5-10.8)
[2020-06-24 05:13] LABS: ABS Lymphocytes 0.8 10^3/ul (1.0-4.8); ABS Monocytes 0.6 10^3/ul (0-0.8); ABS Neutrophils 20.7 10^3/ul (1.5-7.7); Lymphocyte % 3.5 %; Nucleated Red Blood Cells % 0.1
[2020-06-24 05:29] LABS: BUN/Creatinine Ratio 46.5 (8-20); Calcium 7.9 mg/dL (8.6-10.3); EGFR African American 29.6 (>60); EGFR Non-African American 24.4 (>60)
[2020-06-24 05:38] LABS: Potassium 5.7 mmol/L (3.5-5.0)
[2020-06-24] MEDS: Docusate LIQ 100 MG/10 ML UDC G TUBE SCH (07:48)
[2020-06-24 08:13] LABS: Magnesium 3.4 mg/dL (1.9-2.7); Phosphorus 8.5 mg/dL (2.5-5.0)
[2020-06-24] MEDS: Acetylcysteine 600mgCAP(RENAL) PO SCH (08:15)
[2020-06-24] MEDS: methylPREDNISolone SOD 40 mg/ml 1 ml VIAL IV SCH (08:15)
[2020-06-24] MEDS: Linezolid 600 MG IVPREMIX(*) 600 MG/300 ML BAG IVPB SCH (08:51)
[2020-06-24] MEDS ORDERED: Enoxaparin 60 MG/0.6 ML SYR SUBCUT SCH (09:00)
[2020-06-24] MEDS ORDERED: Multivitamins/Minerals TAB PO SCH (09:00)
[2020-06-24] MEDS: Pantoprazole VIAL 40 MG VIAL IV SCH (09:03)
[2020-06-24] MEDS: Norepinephrine 16MCG/ML IVPRE 4,000 MCG/250 ML BAG IV SCH ×2 (11:27→16:47)
[2020-06-24] MEDS ORDERED: Propofol 10 mg/ml 100 ML BTL 100 ML ONE (13:01)
[2020-06-24] MEDS ORDERED: Phenylephrine IV 50 MG in NS 0.9% 250 ml 245 ML IV SCH (18:00)
[2020-06-24 18:05] VITALS: BP 111/70
[2020-06-24] MEDS ORDERED: Insulin GLARGINE 100 un/ml 10 ml VIAL SUBCUT SCH (21:00)
== END 2020-06-24 19:10 | disposition expired | DRG 207 ==
LOC: ED 18:05 → ICU 18:39 → EDHOLD 18:39 → ICU 21:08
PROVIDERS: ADMIT Internal Medicine; ATTEND Internal Medicine Critical Care Medicine